=== PATIENT | female | born 1975 | race Two or more races ===

== ENCOUNTER 2018-01-06 04:23 | Emergency (ER) | payer MEDICAID ==
[~2018-01-06] VITALS: Ht 154.9 cm; Wt 45.4 kg
[2018-01-06 05:08] LABS: URINE HCG NEGATIVE (NEG)
[2018-01-06 05:15] LABS: CLARITY,URINE CLEAR (Clear); COLOR,URINE YELLOW (Yellow); GLUCOSE, URINE NEGATIVE (Neg); KETONES,URINE 15 mg/dl (Neg); LEUKOCYTE ESTERASE ,URINE NEGATIVE (Neg); NITRITES, URINE NEGATIVE (Neg); OCCULT BLOOD,URINE NEGATIVE (Neg); PH,URINE 5.5 (4.8-8.0); PROTEIN,URINE NEGATIVE (Neg); UROBILINOGEN,URINE 0.2 E.U/dL (0.2-1.0)
[2018-01-06 05:16] LABS: UA COLLECTION TYPE CLN CATCH MIDSTREAM
[2018-01-06 05:38] LABS: BASOPHILS # (AUTO) 0.1 X10'3 (0-0.2); BASOPHILS % (AUTO) 0.7 % (0-1); EOSINOPHILS # (AUTO) 0.1 X10'3 (0-0.9); EOSINOPHILS % (AUTO) 1.5 % (0-6); HEMATOCRIT 41.2 % (35.0-45.0); HEMOGLOBIN 14.1 g/dl (12.0-16.0); LYMPHOCYTES # (AUTO) 1.3 X10'3 (1.1-4.8); LYMPHOCYTES % (AUTO) 15.8 % (21-51); MEAN CORPUSCULAR HEMOGLOBIN 31.2 PG (27.0-31.0); MEAN CORPUSCULAR HGB CONC 34.1 % (33.0-36.5); MEAN CORPUSCULAR VOLUME 91.4 FL (78-98); MEAN PLATELET VOLUME 7.4 FL (7.4-10.4); MONOCYTES # (AUTO) 0.5 X10'3 (0-0.9); MONOCYTES % (AUTO) 6.1 % (2-12); NEUTROPHILS # (AUTO) 6.3 X10'3 (1.8-7.7); NEUTROPHILS % (AUTO) 75.9 % (42-75); PLATELET COUNT 304 X10'3 (140-440); RED BLOOD COUNT 4.51 X10'6 (4.20-5.60); RED CELL DISTRIBUTION WIDTH 14.9 % (11.5-14.5); WHITE BLOOD COUNT 8.3 X10'3 (4.5-11.0)
[2018-01-06] MEDS ORDERED: normal saline 1000ML IV soln IVB ONE (05:50)
[2018-01-06 05:56] LABS: ALANINE AMINOTRANSFERASE 17 U/L (12-78); ALBUMIN 3.4 G/DL (3.4-5.0); ALBUMIN/GLOBULIN RATIO 0.9 (1.1-1.5); ALKALINE PHOSPHATASE 57 IU/L (46-116); ANION GAP 12 (8-16); ASPARTATE AMINO TRANSFERASE 12 U/L (10-37); BILIRUBIN,TOTAL 0.4 MG/DL (0.1-1.0); BLOOD UREA NITROGEN 9 MG/DL (7-18); BUN/CREATININE RATIO 12.2 (6.6-38.0); CHLORIDE 102 MMOL/L (99-107); CREATININE 0.74 MG/DL (0.40-0.90); GLUCOSE 103 MG/DL (70-104); SODIUM 137 MMOL/L (135-145); TOTAL CARBON DIOXIDE 23.5 MMOL/L (24-32); TOTAL PROTEIN 7.2 G/DL (6.4-8.2); eGFR 86 ML/MIN
[2018-01-06 07:22] LABS: LIPASE 92 U/L (73-393)
[2018-01-06] MEDS ORDERED: ondansetron/PF 4mg/2ml inj IV ONE (07:25)
[2018-01-06] MEDS ORDERED: HYDROmorphone inj. 0.5 MG/0.5 ML DISP.SYRIN IV ONE (07:25)
[2018-01-06] MEDS ORDERED: morphine 4 MG/ML inj SYRINge IV PRN (07:40)
[2018-01-06] MEDS ORDERED: proCHLORperazine 10 MG/2 ml inj IV ONE (07:40)
[2018-01-06 11:56] VITALS: BP 101/57
== END 2018-01-06 12:04 | disposition home or self-care (01) ==
LOC: ER 04:23
DX: R10.32 Left lower quadrant pain (principal)
CPT/HCPCS: 36415; 74176; 76856; 80053; 81003; 81025; 83605; 83690; 84145; 85025; 85610; 87040; 96361; 96374; 96375; 99285; J0780; J2270; J7030